=== PATIENT | male | born 1960 | race Caucasian/White ===

== ENCOUNTER 2016-09-08 09:25 | Emergency (ER) | payer MEDICAID ==
[~2016-09-08] VITALS: Ht 188 cm; Wt 97.0 kg
[2016-09-08 09:28] VITALS: BP 219/125; PULSE 104; RESP 20; TEMP 98.6; O2SAT 98
[2016-09-08 09:35] VITALS: BP 214/111
--- NOTE | 2016-09-08 11:21 | RADRPT ---
EXAM DATE/TIME: 09/08/2016 10:53 [facility] COMPARISON: No previous studies available for comparison. INDICATIONS : Short of breath, high blood pressure. MEDICAL HISTORY : Hypertension, high cholesterol. SURGICAL HISTORY : ENCOUNTER: Initial ACUITY: 1 day PAIN SCORE: 0/10 LOCATION: Bilateral chest FINDINGS: The lungs are clear. The heart is minimally enlarged. The pulmonary vascularity is mildly congested.. There is no evidence for infiltrate or failure. The portion of the bony skeleton visualized is unremarkable. CONCLUSION: Probable mild congestive failure. Donald Robles MD FACR Board Certified Radiologist. This report was verified electronically.
[2016-09-08 11:35] LABS: AUTOMATED NEUTROPHIL # 2.7 TH/MM3 (1.8-7.7); EOSINOPHIL # 0.2 TH/MM3 (0-0.4); EOSINOPHIL % 5.1 % (0.0-4.0); HEMATOCRIT 45.5 % (39.0-51.0); HEMO FLAGS DIFF FINAL; LYMPH % 16.7 % (9.0-44.0); LYMPHOCYTE # 0.7 TH/MM3 (1.0-4.8); MEAN CELL VOLUME 95.9 FL (80.0-100.0); MEAN CORPUSCULAR HEMOGLOBIN 32.8 PG (27.0-34.0); MEAN CORPUSCULAR HGB CONC 34.2 % (32.0-36.0); MONO % 15.5 % (0.0-8.0); NEUT % 61.7 % (16.0-70.0); PLATELET COUNT 137 TH/MM3 (150-450); RED BLOOD COUNT 4.74 MIL/MM3 (4.50-5.90); RED CELL DISTRIBUTION WIDTH 13.5 % (11.6-17.2); WHITE BLOOD COUNT 4.3 TH/MM3 (4.0-11.0)
[2016-09-08 11:40] VITALS: BP 198/101
[2016-09-08 11:54] LABS: ALT (GPT) 44 U/L (12-78); ANION GAP 5 MEQ/L (5-15); AST (GOT) 53 U/L (15-37); BLOOD UREA NITROGEN 8 MG/DL (7-18); CHLORIDE 108 MEQ/L (98-107); GLOMERULAR FILTRATION RATE 80 ML/MIN (>89); POTASSIUM 4.3 MEQ/L (3.5-5.1); SODIUM (NA) 140 MEQ/L (136-145)
[2016-09-08 11:55] LABS: ALKALINE PHOSPHATASE 42 U/L (45-117); TOTAL BILIRUBIN ADULT 0.6 MG/DL (0.2-1.0)
--- NOTE | 2016-09-08 12:18 | PD ---
HPI Chief Complaint: Edema Time Seen by Provider: 10:23 Travel History International Travel<30 days: No Contact w/Intl Traveler<30days: No Traveled to known affect area: No History of Present Illness HPI Is a 55-year-old man who presents to the emergency department complaining of right leg swelling is been ongoing for the past 8 months or so. He got insurance within his doctor can't see him for another month or 2. He has pain in the right leg occasionally. He occasionally gets swelling in the left leg as well. No specific injuries. He is not sure what is causing it. He has not seen a previous doctor regarding this issue. He was seen for shortness of breath a year or so ago, and was told he had a "enlarged heart" and was placed on diuretics for short period of time. He drinks alcohol but denies daily alcohol use. No withdrawal symptoms. He's been out of high blood pressure and high cholesterol medicines for a number of months. History Past Medical History Narrative Medical Hypertension hyperlipidemia "Enlarged heart" Tetanus Vaccination: Unknown Social History Alcohol Use: Yes (4-5 DAYS A WEEK BEER) Tobacco Use: No Review of Systems Except as stated in HPI: all other systems reviewed are Neg Physical Exam Narrative GENERAL: Well-appearing 55 old man, no acute distress. SKIN: Focused skin assessment warm/dry. HEAD: Atraumatic. Normocephalic. EYES: Pupils equal and round. No scleral icterus. No injection or drainage. ENT: No nasal bleeding or discharge. Mucous membranes pink and moist. NECK: Trachea midline. No JVD. CARDIOVASCULAR: Regular rate and rhythm. No murmur appreciated. RESPIRATORY: No accessory muscle use. Clear to auscultation. Breath sounds equal bilaterally. GASTROINTESTINAL: Abdomen soft, non-tender, nondistended. Hepatic and splenic margins not palpable. MUSCULOSKELETAL: No obvious deformities. Marked edema of the right lower extremity with pitting. There is no real heat or erythema. Pulses are difficult to palpate because he edema of the foot appears warm and well perfused. Data Data Last Documented VS Vital Signs Date Time Temp Pulse Resp B/P Pulse Ox O2 Delivery O2 Flow Rate FiO2 09/08/16 11:40 198/101 09/08/16 11:18 99 Room Air 09/08/16 09:28 98.6 104 20 Orders Complete Blood Count With Diff (09/08/16 10:46) Comprehensive Metabolic Panel (09/08/16 10:46) B-Type Natriuretic Peptide (09/08/16 10:46) Us Leg Venous Doppler (09/08/16 ) Chest, Single Ap (09/08/16 ) Labs Laboratory Tests Test 09/08/16 11:00 White Blood Count 4.3 TH/MM3 Red Blood Count 4.74 MIL/MM3 Hemoglobin 15.6 GM/DL Hematocrit 45.5 % Mean Corpuscular Volume 95.9 FL Mean Corpuscular Hemoglobin 32.8 PG Mean Corpuscular Hemoglobin 34.2 % Concent Red Cell Distribution Width 13.5 % Platelet Count 137 TH/MM3 Mean Platelet Volume 8.4 FL Neutrophils (%) (Auto) 61.7 % Lymphocytes (%) (Auto) 16.7 % Monocytes (%) (Auto) 15.5 % Eosinophils (%) (Auto) 5.1 % Basophils (%) (Auto) 1.0 % Neutrophils # (Auto) 2.7 TH/MM3 Lymphocytes # (Auto) 0.7 TH/MM3 Monocytes # (Auto) 0.7 TH/MM3 Eosinophils # (Auto) 0.2 TH/MM3 Basophils # (Auto) 0.0 TH/MM3 CBC Comment DIFF FINAL Differential Comment Sodium Level 140 MEQ/L Potassium Level 4.3 MEQ/L Chloride Level 108 MEQ/L Carbon Dioxide Level 27.0 MEQ/L Anion Gap 5 MEQ/L Blood Urea Nitrogen 8 MG/DL Creatinine 0.98 MG/DL Estimat Glomerular Filtration 80 ML/MIN Rate Random Glucose 91 MG/DL Calcium Level 9.3 MG/DL Total Bilirubin 0.6 MG/DL Aspartate Amino Transf 53 U/L (AST/SGOT) Alanine Aminotransferase 44 U/L (ALT/SGPT) Alkaline Phosphatase 42 U/L B-Type Natriuretic Peptide 40 PG/ML Total Protein 7.8 GM/DL Albumin 3.7 GM/DL [facility] Medical Decision Making Medical Screen Exam Complete: Yes Emergency Medical Condition: Yes Interpretation(s) LABS: CBC is unremarkable. Platelet count 137. CMP generally unremarkable. BNP normal. Chest x-ray: Probable mild congestive failure. Or 70 ultrasound: Negative. Differential Diagnosis DVT, lymphedema, venous insufficiency, arterial insufficiency, heart failure, other Narrative Course Medical decision making The 55 old man who presents emergency Department with untreated hypertension, marked right sided lower extremity edema, concern for DVT, lymphedema, or less likely heart failure. We'll check labs x-ray and Doppler ultrasound. Likely outpatient follow-up. Diagnosis Primary Impression: Edema of right lower extremity Additional Instructions: Follow-up with your primary doctor at the first available appointment. Take medications as prescribed. Wrap leg for comfort. Keep leg elevated as much as possible. Med/Other Pt SpecificInfo: Prescription(s) given Scripts Amlodipine 10 Mg Tab10 Mg PO DAILY #30 TAB Ref 2 Prov:Dany Rowley MD 09/08/16 Hydrochlorothiazide 25 Mg Tab25 Mg PO DAILY #30 TAB Ref 2 Prov:Dany Rowley MD 09/08/16 Lisinopril 40 Mg Tab40 Mg PO DAILY #30 TAB Ref 2 Prov:Dany Rowley MD 09/08/16 Simvastatin 10 Mg Tab10 Mg PO DAILY #30 TAB Ref 2 Prov:Dany Rowley MD 09/08/16 Furosemide 20 Mg Tab20 Mg PO DAILY 5 Days Ref 0 Prov:Dany Rowley MD 09/08/16 Disposition: 01 DISCHARGE HOME Condition: Stable Dany Rowley MD September 08, 2016 11:30
--- NOTE | 2016-09-08 13:08 | RADRPT ---
EXAM DATE/TIME: 09/08/2016 12:16 [facility] COMPARISON: No previous studies available for comparison. INDICATIONS : Right leg pain and swelling. MEDICAL HISTORY : Hypertension. SURGICAL HISTORY : None. ENCOUNTER: Initial ACUITY: 1 day PAIN SCORE: 4/10 LOCATION: Right leg. TECHNIQUE: Venous ultrasound of the leg was performed from the inguinal ligament to the proximal calf. Real-deana e, color Doppler and spectral tracing, compression and augmentation techniques were used. FINDINGS: There is normal compressibility of the deep venous system from the inguinal region to the proximal ca lf. No echogenic clot is seen in the lumen of the common femoral, femoral, popliteal, and posterior tibial veins. There is a normal response of the venous system to proximal and distal augmentation an d respiration. CONCLUSION: Negative for deep venous thrombosis. Donald Robles MD FACR on September 08, 2016 at 13:06 Board Certified Radiologist. This report was verified electronically.
[2016-09-08] MEDS ORDERED: SIMV10TA PO (13:51)
[2016-09-08] MEDS ORDERED: LISI40TA PO (13:51)
[2016-09-08] MEDS ORDERED: FURO20TA PO (13:51)
[2016-09-08] MEDS ORDERED: HYDR25TA5 PO (13:51)
[2016-09-08] MEDS ORDERED: AMLO10TA2 PO (13:51)
[2016-09-08 14:19] VITALS: BP 195/96
== END 2016-09-08 14:20 | disposition home or self-care (01) ==
LOC: NEPC 09:25
DX: R60.0 Localized edema (principal); M79.604 Pain in right leg; I10 Essential (primary) hypertension; E78.5 Hyperlipidemia, unspecified
CPT/HCPCS: 71010; 80053; 83880; 85025; 93971